=== PATIENT | male | born 1985 | race Caucasian/White ===

== ENCOUNTER 2017-04-11 16:32 | Emergency (ER) | payer BC ==
[~2017-04-11] VITALS: Ht 182.9 cm; Wt 74.7 kg
[2017-04-11] MEDS ORDERED: AUGMENTIN 875 MG TAB PO ONE (18:15)
[2017-04-11] MEDS ORDERED: AUGM875T28 PO (18:18)
[2017-04-11 18:24] VITALS: BP 141/87
== END 2017-04-11 18:26 | disposition home or self-care (01) ==
LOC: M ED 16:32
DX: S02.5XXA Fracture of tooth (traumatic), initial encounter for closed fracture (principal); X58.XXXA Exposure to other specified factors, initial encounter; Y92.9 Unspecified place or not applicable; Y93.89 Activity, other specified; Y99.8 Other external cause status; F17.200 Nicotine dependence, unspecified, uncomplicated; Z88.6 Allergy status to analgesic agent